=== PATIENT | male | born 1940 | race Caucasian/White ===

== ENCOUNTER → 2017-03-03 | Day surgery (SDC) | payer MEDICARE ==
[~2017-03-03] VITALS: Ht 170.2 cm; Wt 97.1 kg
[~2017-03-03] MED LIST: ACETAMINOPHEN 325 MG TAB PO PRN; ACETYLCHOLINE OPHTH SOLN 1% 2ML (MIOCHOL-E) As Ordered ONE; ALFU10TA2 PO; AcetaZOLAMIDE 500 MG ER CAP PO ONE; BALANCED SALT IRRIGATION SOLUTION 500ML BAG (FOR OR EYE MACHINE) As Ordered ONE; CEFUROXIME 1MG/0.1ML INTRACAMERAL INJ As Ordered ONE; CYCLOPENTOLATE 2% OPHTH SOLN 2ML BTL OS ONE; DRIS50002 PO; FINA5TAB2 PO; HEALON DUET (HEALON 10MG/ML 0.55ML & HEALON ENDOCOAT 30MG/ML 0.85ML) As Ordered ONE; KETOROLAC 0.5% OPHTH SOLN OS ONE; LIDOCAINE 1% SDV 5 ML VIAL As Ordered ONE; LIDOCAINE 4% INJ 5 ML AMP OU ONE; LR 500 ML IV ONE; METF500T PO; METO25TAB PO; MIDAZOLAM INJ 2 MG/2 ML VIAL (J2250) As Ordered ONE; OFLOXACIN 0.3 % (OCUFLOX) OPTH SOL 5ML OS ONE; PHENYLEPHRINE 2.5% OPHTH SOL 2ML OS ONE; POVIDONE-IODINE 5% OPHTH PREP SOL 30ML As Ordered ONE; PROPARACAINE 0.5% OPHTH SOL 15ML OS PRN; SIMV40TA2 PO; TRIMETHOBENZAMIDE 300 MG CAP PO PRN; TROPICAMIDE 1% OPHTH SOLN 2ML OS ONE
[2017-03-03 12:00] VITALS: BP 133/75
--- NOTE | 2017-03-04 17:31 | RO ---
DATE OF PROCEDURE: 03/03/2017 PREPROCEDURE DIAGNOSIS: Age-related nuclear cataract left eye. POSTPROCEDURE DIAGNOSIS: Age-related nuclear cataract left eye. PROCEDURE: Femtosecond cataract with posterior chamber intraocular lens implantation left eye. SURGEON: Reshma Grubbs MD ELECTRICAL SERVICE TECHNICIAN: ANESTHESIA: Topical with sedation. LENS USED: AU00T0 21.0 diopter. DESCRIPTION OF PROCEDURE: The patient was brought to the operating room and put under the Femtosecond laser. A lid speculum was placed between the lids and the laser was lowered on. Docking was achieved with good suction. The laser procedure was performed with no difficulty. The laser was then removed from the eye and the lid speculum was removed. The laser was moved over to the operating microscope and prepped and draped in the usual fashion. A lid speculum was placed between the lids. The eye was fixated. The side-port incision was opened up with a spatula. 1% non-preservative Lidocaine was instilled; then viscoelastic was instilled. The main incision was then opened with the spatula. The capsulorrhexis was removed from the eye with the Utrata forceps. The lens then hydrodissected and a phacoemulsification was used to make a groove in the nucleus and one meridian. The nucleus was cracked into four quadrants and then each quadrant was removed with the phacoemulsification unit. Any remaining cortex was removed with the I and A unit. The capsular bag was refilled with viscoelastic. A posterior chamber intraocular lens was placed in the capsular bag. The remaining viscoelastic was removed. The wound was hydrated. Miochol and cefuroxime were instilled. The wound was water-tight. The patient tolerated the procedure well and went to the recovery room in stable condition.
== END | disposition home or self-care (01) ==
LOC: M SDC 09:25
PROVIDERS: ATTEND Ophthalmology
DX: H25.12 Age-related nuclear cataract, left eye (principal); I48.91 Unspecified atrial fibrillation; E11.9 Type 2 diabetes mellitus without complications; I10 Essential (primary) hypertension; E78.00 Pure hypercholesterolemia, unspecified; N40.0 Benign prostatic hyperplasia without lower urinary tract symptoms; Z87.891 Personal history of nicotine dependence; Z79.899 Other long term (current) drug therapy; Z95.0 Presence of cardiac pacemaker
CPT/HCPCS: 66984; J2250; V2632

== ENCOUNTER → 2017-03-24 | Day surgery (SDC) | payer MEDICARE ==
[~2017-03-24] VITALS: Ht 170.2 cm; Wt 97.0 kg
[~2017-03-24] MED LIST changes: +CYCLOPENTOLATE 2% OPHTH SOLN 2ML BTL As Ordered ONE; +CYCLOPENTOLATE 2% OPHTH SOLN 2ML BTL OD ONE; -CYCLOPENTOLATE 2% OPHTH SOLN 2ML BTL OS ONE; +HumaLOG INSULIN (NovoLOG) PER UNIT As Ordered ONE; +HumaLOG INSULIN (NovoLOG) PER UNIT SC ONE; +KETOROLAC 0.5% OPHTH SOLN OD ONE; -KETOROLAC 0.5% OPHTH SOLN OS ONE; +LR 1,000 ML IV SCH; -LR 500 ML IV ONE; +LR 500 ML IV SCH; -METF500T PO; +METF500T13 PO; +METO25TA4 PO; -METO25TAB PO; +OFLOXACIN 0.3 % (OCUFLOX) OPTH SOL 5ML As Ordered ONE; +OFLOXACIN 0.3 % (OCUFLOX) OPTH SOL 5ML OD ONE; -OFLOXACIN 0.3 % (OCUFLOX) OPTH SOL 5ML OS ONE; +ONDANSETRON 4MG/2ML VIAL (J2405) IV PRN; +PHENYLEPHRINE 2.5% OPHTH SOL 2ML As Ordered ONE; +PHENYLEPHRINE 2.5% OPHTH SOL 2ML OD ONE; -PHENYLEPHRINE 2.5% OPHTH SOL 2ML OS ONE; +PROPARACAINE 0.5% OPHTH SOL 15ML OD PRN; -PROPARACAINE 0.5% OPHTH SOL 15ML OS PRN; +TROPICAMIDE 1% OPHTH SOLN 2ML As Ordered ONE; +TROPICAMIDE 1% OPHTH SOLN 2ML OD ONE; -TROPICAMIDE 1% OPHTH SOLN 2ML OS ONE
[2017-03-24 11:45] VITALS: BP 130/70
--- NOTE | 2017-03-24 15:15 | RO ---
DATE OF PROCEDURE: 03/24/2017 PREPROCEDURE DIAGNOSIS: Age related nuclear cataract, left eye. POSTPROCEDURE DIAGNOSIS: Age related nuclear cataract, left eye. PROCEDURE: Phacoemulsification and posterior chamber intraocular lens implantation, left eye. The lens used was AU00T0, 20.0 Diopter. SURGEON: Reshma Grubbs MD STUDIO MANAGER: ANESTHESIA: Topical with sedation. DESCRIPTION OF PROCEDURE: The patient was prepped and draped in the usual fashion. A lid speculum was placed between the lids. The eye was fixated. A stab incision was made to the anterior chamber, and 1% non-preserved lidocaine was instilled. Then, viscoelastic was instilled. The eye was re-fixated. A 2.75 mm sapphire keratome was used to make a clear corneal temporal limbal incision. Capsulorrhexis was begun with a 30-gauge bent needle and then carried out in a circular fashion with capsulorrhexis forceps. The lens was hydrodissected, and then the phacoemulsification unit was used to make a groove in the nucleus in two meridians. The nucleus was then cracked into four quadrants. Each quadrant was removed with the phacoemulsification unit. Any remaining cortex was removed with the irrigation and aspiration (I and A) unit. Capsular bag was refilled with viscoelastic. A posterior chamber intraocular lens was placed in the capsular bag without difficulty. Any remaining viscoelastic was removed with the I and A unit. The wound was hydrated, and Miochol and cefuroxime were instilled into the anterior chamber. The patient tolerated the procedure well and went to the recovery room in stable condition.
== END | disposition home or self-care (01) ==
LOC: EDUNIT# 08:00 → M SDC 09:27
PROVIDERS: ATTEND Ophthalmology
DX: H25.12 Age-related nuclear cataract, left eye (principal); I10 Essential (primary) hypertension; I48.91 Unspecified atrial fibrillation; E78.5 Hyperlipidemia, unspecified; E11.9 Type 2 diabetes mellitus without complications; Z95.0 Presence of cardiac pacemaker; Z79.899 Other long term (current) drug therapy
CPT/HCPCS: 66984; J2250; V2632